=== PATIENT | male | born 1975 | race Two or more races ===

== ENCOUNTER 2022-12-08 12:44 | Inpatient (IN) | payer OTHER ==
[2022-12-08] MEDS ORDERED: hydrOXYzine PAMOATE 25 MG CAPSULE (FP) PO PRN (16:35)
[2022-12-08] MEDS ORDERED: NICOTINE POLACRILEX 2 MG GUM BUC PRN (16:35)
[2022-12-08] MEDS ORDERED: MAG HYDROX/AL HYDROX/SIMETH 30 ML UNIT-DOSE CUP PO PRN (16:35)
[2022-12-08] MEDS ORDERED: MAGNESIUM HYDROX 2400MG/30ML ORAL SUSPENSION 30 ML CUP PO PRN (16:35)
[2022-12-08] MEDS ORDERED: IBUPROFEN 600 MG TABLET (FP) PO PRN (16:35)
[2022-12-08] MEDS ORDERED: ACETAMINOPHEN 325 MG TABLET (FP) PO PRN (16:35)
[2022-12-08] MEDS ORDERED: NALOXONE HCL (KLOXXADO) 8 MG SPRAY NS PRN (16:35)
[2022-12-08] MEDS ORDERED: IBUPROFEN 400 MG TABLET (FP) PO PRN (16:35)
[2022-12-08] MEDS ORDERED: guaiFENesin 600 MG TABLET.ER (FP) PO PRN (16:35)
[2022-12-08] MEDS ORDERED: POLYETHYLENE GLYCOL (HEALTHYLAX) 3350 17 GM PACKET PO PRN (16:35)
[2022-12-08] MEDS ORDERED: COLLOIDAL OATMEAL 1 BAR EACH TP PRN (16:35)
[2022-12-08] MEDS ORDERED: BENZONATATE 200 MG CAPSULE PO PRN (16:35)
[2022-12-08] MEDS ORDERED: BENZOCAINE/MENTHOL (CHLORASEPTIC ) LOZENGE MM PRN (16:35)
[2022-12-08] MEDS ORDERED: NALOXONE HCL 0.4 MG/ML VIAL IM PRN (16:35)
[2022-12-08] MEDS ORDERED: P-EPHED 60MG/TRIPROLIDI 2.5MG TABLET PO PRN (16:35)
[2022-12-08] MEDS ORDERED: LOPERAMIDE HCL 2 MG CAPSULE PO PRN (16:35)
[2022-12-08] MEDS ORDERED: MELATONIN 5 MG TABLETS PO SCH (22:00)
[2022-12-08] MEDS ORDERED: THIAMINE HCL 100 MG TABLET (FP) PO SCH (22:00)
[2022-12-09 07:02] VITALS: TEMP 97.7
[2022-12-09] MEDS ORDERED: methaDONE HCL 10 MG TABLET PO ONE (09:03)
[2022-12-09 09:04] VITALS: RESP 16
[2022-12-09] MEDS ORDERED: BISMUTH SUBSALICYLATE 524 MG/30 ML PO PRN (09:11)
[2022-12-09] MEDS ORDERED: BACLOFEN 10 MG TABLET (FP) PO PRN (09:11)
[2022-12-09] MEDS ORDERED: ONDANSETRON *ODT* 4 MG TABLET SL PRN (09:11)
[2022-12-09] MEDS ORDERED: DICYCLOMINE HCL 10 MG CAPSULE PO PRN (09:11)
[2022-12-09] MEDS ORDERED: cloNIDine HCL 0.1 MG TABLET PO PRN (09:13)
[2022-12-09] MEDS ORDERED: NICOTINE POLACRILEX 4 MG GUM BUC PRN (09:13)
[2022-12-09] MEDS ORDERED: methaDONE 40 MG, methaDONE 10 MG PO ONE (09:30)
[2022-12-09] MEDS ORDERED: PRENATAL VITAMINS W/ FOLIC ACID TABLET (FP) PO SCH (10:00)
[2022-12-09 10:36] LABS: HEMOGLOBIN 14.3 GM/dL (11.7-16.9); MCH 27.8 pg (25.7-33.7); MCHC 32.5 g/dl (32.0-35.9); MEAN CELL VOLUME 85.5 fl (80-96); MEAN PLT VOLUME 8.5 fl (7.5-11.1); PLATELET COUNT 270 10^3/uL (134-434); RBC 5.14 M/mm3 (4.00-5.60); RDW 14.1 % (11.9-15.9); WHITE BLOOD COUNT 5.1 K/mm3 (4.0-10.0)
[2022-12-09 10:43] LABS: URINE APPEARANCE CLEAR; URINE BILIRUBIN NEGATIVE (NEGATIVE); URINE COLOR YELLOW; URINE GLUCOSE (UA) NEGATIVE (NEGATIVE); URINE KETONE NEGATIVE (NEGATIVE); URINE LEUK ESTERASE NEGATIVE (NEGATIVE); URINE NITRITE NEGATIVE (NEGATIVE); URINE PROTEIN NEGATIVE (NEGATIVE); URINE UROBILINOGEN 0.2 mg/dL (0.2-1.0)
[2022-12-09 11:07] LABS: CALCIUM 9.1 mg/dL (8.5-10.1)
[2022-12-09 11:08] LABS: ALBUMIN 3.9 g/dl (3.4-5.0); BLOOD UREA NITROGEN 10.5 mg/dL (7-18)
[2022-12-09 11:11] LABS: CREATININE 0.9 mg/dL (0.55-1.3)
[2022-12-09 11:12] LABS: BILIRUBIN,TOTAL 0.8 mg/dL (0.2-1); TOT PROT 7.4 g/dl (6.4-8.2)
[2022-12-09] MEDS ORDERED: TUBERCULIN PPD 5 TU/0.1ML VIAL ID ONE (11:17)
[2022-12-09] MEDS ORDERED: TUBERCULIN PPD 5 TU/0.1ML SYRINGE (IN PATIENT USE ONLY) ID ONE (12:00)
[2022-12-09 12:45] LABS: SYPHILIS W/ RPR CONF NON-REACTIVE (NONREACTIVE)
[2022-12-09 16:47] VITALS: BP 128/86; PULSE 100
[2022-12-09] MEDS ORDERED: SUVOREXANT 10 MG TABLET PO PRN (22:00)
[2022-12-10] MEDS ORDERED: methaDONE 40 MG, methaDONE 20 MG PO ONE (06:00)
[2022-12-10] MEDS ORDERED: methaDONE HCL 10 MG TABLET PO ONE (06:00)
[2022-12-11] MEDS ORDERED: methaDONE 40 MG, methaDONE 30 MG PO ONE (06:00)
[2022-12-11] MEDS ORDERED: methaDONE HCL 10 MG TABLET PO SCH (06:00)
[2022-12-12] MEDS ORDERED: methaDONE HCL 40 MG DISPERSABLE TABLET PO SCH (06:00)
== END 2022-12-09 16:48 | disposition left against medical advice (07) | DRG 770 ==
LOC: YASAS 12:44 → Y3W 22:00
PROVIDERS: ADMIT Allergy & Immunology; ATTEND Psychiatry & Neurology Pain Medicine
PROC: HZ42ZZZ Group Counseling for Substance Abuse Treatment, Cognitive-Behavioral (ICD-10-PCS; principal; 2022-12-08)
DX: F14.20 Cocaine dependence, uncomplicated (principal); F11.20 Opioid dependence, uncomplicated; F10.20 Alcohol dependence, uncomplicated; F17.210 Nicotine dependence, cigarettes, uncomplicated; F31.9 Bipolar disorder, unspecified; F19.24 Other psychoactive substance dependence with psychoactive substance-induced mood disorder
CPT/HCPCS: 36415; 80053; 81003; 85027; 86780; 86803; 87635

== ENCOUNTER 2023-09-19 15:04 | Inpatient (IN) | payer OTHER ==
[2023-09-19 17:41] VITALS: BMI 25.9
[2023-09-19] MEDS ORDERED: NICOTINE POLACRILEX 2 MG GUM BUC PRN (17:58)
[2023-09-19] MEDS ORDERED: BENZONATATE 200 MG CAPSULE PO PRN (17:58)
[2023-09-19] MEDS ORDERED: BENZOCAINE/MENTHOL (CHLORASEPTIC ) LOZENGE MM PRN (17:58)
[2023-09-19] MEDS ORDERED: BISMUTH SUBSALICYLATE 524 MG/30 ML PO PRN (17:58)
[2023-09-19] MEDS ORDERED: MAGNESIUM HYDROX 2400MG/30ML ORAL SUSPENSION 30 ML CUP PO PRN (17:58)
[2023-09-19] MEDS ORDERED: DICYCLOMINE HCL 10 MG CAPSULE PO PRN (17:58)
[2023-09-19] MEDS ORDERED: guaiFENesin 600 MG TABLET.ER (FP) PO PRN (17:58)
[2023-09-19] MEDS ORDERED: ONDANSETRON *ODT* 4 MG TABLET SL PRN (17:58)
[2023-09-19] MEDS ORDERED: LOPERAMIDE HCL 2 MG CAPSULE PO PRN (17:58)
[2023-09-19] MEDS ORDERED: NALOXONE HCL 0.4 MG/ML VIAL IM PRN (17:58)
[2023-09-19] MEDS ORDERED: NALOXONE (NARCAN) HCL 4 MG/0.1 ML SPRAY NS PRN (17:58)
[2023-09-19] MEDS ORDERED: IBUPROFEN 400 MG TABLET (FP) PO PRN (17:58)
[2023-09-19] MEDS ORDERED: POLYETHYLENE GLYCOL (HEALTHYLAX) 3350 17 GM PACKET PO PRN (17:58)
[2023-09-19] MEDS ORDERED: ACETAMINOPHEN 325 MG TABLET (FP) PO PRN (17:58)
[2023-09-19] MEDS ORDERED: NICOTINE POLACRILEX 2 MG LOZENGE BC PRN (17:58)
[2023-09-19] MEDS: hydrOXYzine PAMOATE 25 MG CAPSULE (FP) PO PRN (21:08)
[2023-09-19] MEDS: METHOCARBAMOL 500 MG TABLET PO PRN (21:08)
[2023-09-19] MEDS: THIAMINE 100 MG TABLET PO SCH (21:08)
[2023-09-19] MEDS: MELATONIN 5 MG TABLETS PO SCH (21:09)
[2023-09-19] MEDS ORDERED: MELATONIN 5 MG TABLETS PO SCH (22:00)
[2023-09-20] MEDS ORDERED: methaDONE HCL 10 MG TABLET PO ONE (08:35)
[2023-09-20] MEDS: methaDONE 80 MG, methaDONE 10 MG PO ONE (08:48)
[2023-09-20] MEDS ORDERED: chlordiazePOXIDE HCL 25 MG CAPSULE PO PRN (09:11)
[2023-09-20] MEDS: chlordiazePOXIDE HCL 25 MG CAPSULE PO SCH (10:03)
[2023-09-20] MEDS: PRENATAL VITAMINS W/ FOLIC ACID TABLET (FP) PO SCH (10:05)
[2023-09-20] MEDS: OLANZapine 10 MG TABLET PO SCH (10:42)
[2023-09-20 11:53] LABS: POTASSIUM 4.1 mmol/L (3.5-5.1)
[2023-09-20 11:57] LABS: ALBUMIN 3.2 g/dl (3.4-5.0); BLOOD UREA NITROGEN 10.2 mg/dL (7-18); CALCIUM 8.5 mg/dL (8.5-10.1)
[2023-09-20 12:00] LABS: CREATININE 0.8 mg/dL (0.55-1.3)
[2023-09-20 12:02] LABS: BILIRUBIN,TOTAL 0.4 mg/dL (0.2-1); TOT PROT 6.4 g/dl (6.4-8.2)
[2023-09-20 12:12] LABS: HEMATOCRIT 40.5 % (35.4-49); HEMOGLOBIN 13.1 GM/dL (11.7-16.9); MCHC 32.4 g/dl (32.0-35.9); MEAN CELL VOLUME 83.3 fl (80-96); MEAN PLT VOLUME 8.4 fl (7.5-11.1); PLATELET COUNT 221 10^3/uL (134-434); RBC 4.87 M/mm3 (4.00-5.60); RDW 13.8 % (11.9-15.9); WHITE BLOOD COUNT 4.9 K/mm3 (4.0-10.0)
[2023-09-20] MEDS: GABAPENTIN 300 MG CAPSULE PO SCH (13:44)
[2023-09-21] MEDS: methaDONE 80 MG, methaDONE 10 MG PO SCH (05:32)
[2023-09-21] MEDS ORDERED: methaDONE HCL 10 MG TABLET PO SCH (06:00)
[2023-09-21] MEDS: diazePAM 5 MG TABLET PO SCH (17:02)
[2023-09-21] MEDS: diazePAM 5 MG TABLET PO PRN (19:23)
[2023-09-22] MEDS: IBUPROFEN 600 MG TABLET (FP) PO PRN (01:06)
[2023-09-22] MEDS ORDERED: chlordiazePOXIDE HCL 25 MG CAPSULE PO SCH (05:00)
[2023-09-23] MEDS ORDERED: chlordiazePOXIDE HCL 10 MG CAPSULE PO PRN
[2023-09-23] MEDS ORDERED: chlordiazePOXIDE HCL 10 MG CAPSULE PO SCH (05:00)
[2023-09-23] MEDS: diazePAM 5 MG TABLET PO SCH (05:16)
[2023-09-23] MEDS: MAG HYDROX/AL HYDROX/SIMETH 30 ML UNIT-DOSE CUP PO PRN (16:32)
[2023-09-23 17:37] VITALS: BP 119/80; PULSE 90; RESP 16; TEMP 98.4
[2023-09-24] MEDS ORDERED: chlordiazePOXIDE HCL 10 MG CAPSULE PO SCH (05:00)
[2023-09-24] MEDS ORDERED: diazePAM 5 MG TABLET PO SCH (06:00)
[2023-09-25] MEDS ORDERED: chlordiazePOXIDE HCL 10 MG CAPSULE PO ONE (05:00)
[2023-09-25] MEDS ORDERED: diazePAM 5 MG TABLET PO ONE (06:00)
== END 2023-09-23 17:02 | disposition home or self-care (01) | DRG 773 ==
LOC: YASAS 15:04 → Y6N 19:24
PROVIDERS: ADMIT Allergy & Immunology; ATTEND Family Medicine Addiction Medicine
PROC: HZ2ZZZZ Detoxification Services for Substance Abuse Treatment (ICD-10-PCS; principal; 2023-09-19)
DX: F10.230 Alcohol dependence with withdrawal, uncomplicated (principal); F11.20 Opioid dependence, uncomplicated; F14.20 Cocaine dependence, uncomplicated; F17.210 Nicotine dependence, cigarettes, uncomplicated; F31.9 Bipolar disorder, unspecified; F25.9 Schizoaffective disorder, unspecified; F19.282 Other psychoactive substance dependence with psychoactive substance-induced sleep disorder; F19.24 Other psychoactive substance dependence with psychoactive substance-induced mood disorder
CPT/HCPCS: 36415; 80053; 80305; 85027; 86780; 93005; 93010

== ENCOUNTER 2024-05-25 12:21 | Inpatient (IN) | payer OTHER ==
[2024-05-25 13:01] VITALS: BMI 26.5
[2024-05-25] MEDS ORDERED: IBUPROFEN 400 MG TABLET (FP) PO PRN (15:28)
[2024-05-25] MEDS ORDERED: guaiFENesin 600 MG TABLET.ER (FP) PO PRN (15:28)
[2024-05-25] MEDS ORDERED: MAG HYDROX/AL HYDROX/SIMETH 30 ML UNIT-DOSE CUP PO PRN (15:28)
[2024-05-25] MEDS ORDERED: BISMUTH SUBSALICYLATE 262 MG/15 ML BTL PO PRN (15:28)
[2024-05-25] MEDS ORDERED: NALOXONE (NARCAN) HCL 4 MG/0.1 ML SPRAY NS PRN (15:28)
[2024-05-25] MEDS ORDERED: MAGNESIUM HYDROX 2400MG/30ML ORAL SUSPENSION 30 ML CUP PO PRN (15:28)
[2024-05-25] MEDS ORDERED: POLYETHYLENE GLYCOL (HEALTHYLAX) 3350 17 GM PACKET PO PRN (15:28)
[2024-05-25] MEDS ORDERED: LOPERAMIDE HCL 2 MG CAPSULE PO PRN (15:28)
[2024-05-25] MEDS ORDERED: BENZONATATE 200 MG CAPSULE PO PRN (15:28)
[2024-05-25] MEDS ORDERED: ONDANSETRON *ODT* 4 MG TABLET SL PRN (15:28)
[2024-05-25] MEDS ORDERED: DICYCLOMINE HCL 10 MG CAPSULE PO PRN (15:28)
[2024-05-25] MEDS ORDERED: IBUPROFEN 600 MG TABLET (FP) PO PRN (15:28)
[2024-05-25] MEDS ORDERED: ACETAMINOPHEN 325 MG TABLET (FP) PO PRN (15:28)
[2024-05-25] MEDS ORDERED: BENZOCAINE/MENTHOL (CHLORASEPTIC ) LOZENGE MM PRN (15:28)
[2024-05-25] MEDS: PRENATAL VITAMINS W/ FOLIC ACID TABLET (FP) PO SCH (17:01)
[2024-05-25] MEDS: MELATONIN 5 MG TABLETS PO SCH (22:48)
[2024-05-25] MEDS: THIAMINE 100 MG TABLET PO SCH (22:48)
[2024-05-26] MEDS: hydrOXYzine PAMOATE 25 MG CAPSULE (FP) PO PRN (01:40)
[2024-05-26] MEDS: METHOCARBAMOL 500 MG TABLET PO PRN (01:40)
[2024-05-26 09:31] LABS: CHLORIDE 104 mmol/L (98-107); POTASSIUM 4.6 mmol/L (3.5-5.1); SODIUM 138 mmol/L (136-145)
[2024-05-26 09:34] LABS: HEMATOCRIT 39.3 % (40.1-51.0); HEMOGLOBIN 12.4 g/dL (13.7-17.5); MCHC 31.6 g/dl (32.3-36.5); MEAN CELL VOLUME 85.8 fl (79.0-92.2); MEAN PLT VOLUME 10.4 fl (9.4-12.4); PLATELET COUNT # 283 x10^3/uL (163-337); RDW 13.8 % (12.1-15.9)
[2024-05-26 10:13] LABS: ALBUMIN 3.1 g/dl (3.4-5.0); BLOOD UREA NITROGEN 11.4 mg/dL (7-18); CALCIUM 8.5 mg/dL (8.5-10.1); GLUCOSE,RANDOM 108 mg/dL (74-106)
[2024-05-26 10:14] LABS: ANION GAP 5 mmol/L (4-13); CO2 28 mmol/L (21-32)
[2024-05-26 10:16] LABS: CREATININE 0.8 mg/dL (0.55-1.3); SGOT/AST 19 U/L (15-37)
[2024-05-26 10:18] LABS: BILIRUBIN,TOTAL 0.5 mg/dL (0.2-1); TOT PROT 6.3 g/dl (6.4-8.2)
[2024-05-26 10:19] LABS: ALK PHOS 109 U/L (45-117)
[2024-05-26] MEDS: methaDONE 40 MG, methaDONE 30 MG PO SCH (10:30)
[2024-05-26 10:32] LABS: SGPT/ALT 23 U/L (13-61)
[2024-05-26] MEDS: methaDONE HCL 40 MG DISPERSABLE TABLET PO SCH (10:39)
[2024-05-26] MEDS: GABAPENTIN 300 MG CAPSULE PO SCH (13:23)
[2024-05-26] MEDS: MIRTAZAPINE 15 MG TABLET (FP) PO SCH (22:06)
[2024-05-26] MEDS: OLANZapine 10 MG TABLET PO SCH (22:06)
[2024-05-27] MEDS ORDERED: chlordiazePOXIDE HCL 25 MG CAPSULE PO PRN (08:56)
[2024-05-27] MEDS ORDERED: diazePAM 5 MG TABLET PO PRN (10:11)
[2024-05-27] MEDS ORDERED: chlordiazePOXIDE HCL 25 MG CAPSULE PO SCH (11:00)
[2024-05-27] MEDS: diazePAM 5 MG TABLET PO SCH (13:05)
[2024-05-27] MEDS: DIVALPROEX SODIUM 250 MG TABLET E.C. PO SCH (21:19)
[2024-05-27] MEDS: levETIRAcetam 500 MG TABLET (FP) PO SCH (21:19)
[2024-05-28] MEDS ORDERED: chlordiazePOXIDE HCL 10 MG CAPSULE PO SCH (05:00)
[2024-05-28] MEDS: diazePAM 5 MG TABLET PO SCH (05:53)
[2024-05-28] MEDS: ACAMPROSATE CALCIUM 333 MG TABLET.DR PO SCH (13:14)
[2024-05-29] MEDS ORDERED: chlordiazePOXIDE HCL 10 MG CAPSULE PO SCH (05:00)
[2024-05-29] MEDS: diazePAM 5 MG TABLET PO ONE (06:03)
[2024-05-29 08:47] VITALS: BP 121/81; PULSE 95; RESP 17; TEMP 97.6
[2024-05-30] MEDS ORDERED: chlordiazePOXIDE HCL 10 MG CAPSULE PO ONE (05:00)
== END 2024-05-29 12:06 | disposition home or self-care (01) | DRG 773 ==
LOC: YASAS 12:21 → Y6N 16:34
PROVIDERS: ADMIT Allergy & Immunology; ATTEND Allergy & Immunology
PROC: HZ2ZZZZ Detoxification Services for Substance Abuse Treatment (ICD-10-PCS; principal; 2024-05-25)
DX: F10.230 Alcohol dependence with withdrawal, uncomplicated (principal); F11.20 Opioid dependence, uncomplicated; F14.20 Cocaine dependence, uncomplicated; F12.20 Cannabis dependence, uncomplicated; F17.210 Nicotine dependence, cigarettes, uncomplicated; F31.9 Bipolar disorder, unspecified; F25.0 Schizoaffective disorder, bipolar type; F19.282 Other psychoactive substance dependence with psychoactive substance-induced sleep disorder; E78.5 Hyperlipidemia, unspecified
CPT/HCPCS: 36415; 80053; 80305; 80307; 85027; 86780; 93005; 93010

== ENCOUNTER 2024-07-05 14:01 | Inpatient (IN) | payer OTHER ==
[2024-07-05 14:20] VITALS: BMI 27.6
[2024-07-05] MEDS ORDERED: IBUPROFEN 600 MG TABLET (FP) PO PRN (14:31)
[2024-07-05] MEDS ORDERED: NALOXONE (NARCAN) HCL 4 MG/0.1 ML SPRAY NS PRN (14:31)
[2024-07-05] MEDS ORDERED: BENZONATATE 200 MG CAPSULE PO PRN (14:31)
[2024-07-05] MEDS ORDERED: POLYETHYLENE GLYCOL (HEALTHYLAX) 3350 17 GM PACKET PO PRN (14:31)
[2024-07-05] MEDS ORDERED: ACETAMINOPHEN 325 MG TABLET (FP) PO PRN (14:31)
[2024-07-05] MEDS ORDERED: BISMUTH SUBSALICYLATE 262 MG/15 ML BTL PO PRN (14:31)
[2024-07-05] MEDS ORDERED: DICYCLOMINE HCL 10 MG CAPSULE PO PRN (14:31)
[2024-07-05] MEDS ORDERED: ONDANSETRON *ODT* 4 MG TABLET SL PRN (14:31)
[2024-07-05] MEDS ORDERED: BENZOCAINE/MENTHOL (CHLORASEPTIC ) LOZENGE MM PRN (14:31)
[2024-07-05] MEDS ORDERED: MAG HYDROX/AL HYDROX/SIMETH 30 ML UNIT-DOSE CUP PO PRN (14:31)
[2024-07-05] MEDS ORDERED: LOPERAMIDE HCL 2 MG CAPSULE PO PRN (14:31)
[2024-07-05] MEDS ORDERED: IBUPROFEN 400 MG TABLET (FP) PO PRN (14:31)
[2024-07-05] MEDS ORDERED: guaiFENesin 600 MG TABLET.ER (FP) PO PRN (14:31)
[2024-07-05] MEDS ORDERED: MAGNESIUM HYDROX 2400MG/30ML ORAL SUSPENSION 30 ML CUP PO PRN (14:31)
[2024-07-05] MEDS ORDERED: diazePAM 5 MG TABLET ONE (14:58)
[2024-07-05] MEDS: PRENATAL VITAMINS W/ FOLIC ACID TABLET (FP) PO SCH (14:59)
[2024-07-05] MEDS ORDERED: PRENATAL VITAMINS W/ FOLIC ACID TABLET (FP) PO ONE (14:59)
[2024-07-05] MEDS: diazePAM 5 MG TABLET PO ONE (15:00)
[2024-07-05] MEDS: diazePAM 5 MG TABLET PO SCH (17:24)
[2024-07-05] MEDS: diazePAM 5 MG TABLET PO PRN (19:44)
[2024-07-05] MEDS: MELATONIN 5 MG TABLETS PO SCH (21:59)
[2024-07-05] MEDS: THIAMINE 100 MG TABLET PO SCH (22:00)
[2024-07-05] MEDS: ACAMPROSATE CALCIUM 333 MG TABLET.DR PO SCH (22:02)
[2024-07-06 10:00] LABS: HEMATOCRIT 42.7 % (40.1-51.0); MCHC 30.4 g/dl (32.3-36.5); MEAN CELL VOLUME 86.4 fl (79.0-92.2); MEAN PLT VOLUME 10.4 fl (9.4-12.4); PLATELET COUNT 257 x10^3/uL (163-337); RDW 13.3 % (12.2-16.1)
[2024-07-06] MEDS: METHOCARBAMOL 500 MG TABLET PO PRN (10:09)
[2024-07-06] MEDS ORDERED: methaDONE 40 MG, methaDONE 30 MG PO ONE (10:21)
[2024-07-06 10:40] LABS: CHLORIDE 101 mmol/L (98-107); POTASSIUM 3.8 mmol/L (3.5-5.1); SODIUM 136 mmol/L (136-145)
[2024-07-06] MEDS: methaDONE 40 MG, methaDONE 30 MG PO ONE (10:45)
[2024-07-06 10:58] LABS: CALCIUM 9.3 mg/dL (8.5-10.1)
[2024-07-06 10:59] LABS: ALBUMIN 3.1 g/dl (3.4-5.0); ANION GAP 10 mmol/L (4-13); BLOOD UREA NITROGEN 8.1 mg/dL (7-18); CO2 26 mmol/L (21-32); GLUCOSE,RANDOM 164 mg/dL (74-106)
[2024-07-06 11:02] LABS: SGOT/AST 21 U/L (15-37)
[2024-07-06 11:03] LABS: BILIRUBIN,TOTAL 0.3 mg/dL (0.2-1); TOT PROT 6.4 g/dl (6.4-8.2)
[2024-07-06 11:05] LABS: ALK PHOS 107 U/L (45-117)
[2024-07-06 11:28] LABS: SGPT/ALT 22 U/L (13-61)
[2024-07-06] MEDS: GABAPENTIN 300 MG CAPSULE PO SCH (13:46)
[2024-07-06] MEDS: OLANZapine 10 MG TABLET PO SCH (22:10)
[2024-07-06] MEDS: hydrOXYzine PAMOATE 25 MG CAPSULE (FP) PO PRN (22:44)
[2024-07-07] MEDS: methaDONE 40 MG, methaDONE 30 MG PO SCH (05:31)
[2024-07-07] MEDS: diazePAM 5 MG TABLET PO SCH (05:33)
[2024-07-07] MEDS ORDERED: methaDONE 40 MG, methaDONE 30 MG PO SCH ×2 (06:00→10:00)
[2024-07-08] MEDS: diazePAM 5 MG TABLET PO SCH (05:35)
[2024-07-09] MEDS: diazePAM 5 MG TABLET PO ONE (05:57)
[2024-07-09 06:42] VITALS: RESP 18
[2024-07-09 08:51] VITALS: BP 121/73; PULSE 90; TEMP 98.4
== END 2024-07-09 11:15 | disposition home or self-care (01) | DRG 773 ==
LOC: YASAS 14:01 → Y6N 14:51
PROVIDERS: ADMIT Allergy & Immunology; ATTEND Allergy & Immunology
PROC: HZ2ZZZZ Detoxification Services for Substance Abuse Treatment (ICD-10-PCS; principal; 2024-07-05)
DX: F10.230 Alcohol dependence with withdrawal, uncomplicated (principal); F11.20 Opioid dependence, uncomplicated; F14.20 Cocaine dependence, uncomplicated; F12.20 Cannabis dependence, uncomplicated; F17.210 Nicotine dependence, cigarettes, uncomplicated; F19.282 Other psychoactive substance dependence with psychoactive substance-induced sleep disorder; F31.9 Bipolar disorder, unspecified; E78.5 Hyperlipidemia, unspecified
CPT/HCPCS: 36415; 80053; 80305; 80307; 82962; 85027; 86780; 93005; 93010

== ENCOUNTER 2024-08-24 16:15 | Inpatient (IN) | payer OTHER ==
[2024-08-24 17:09] VITALS: BMI 28.7
[2024-08-24] MEDS ORDERED: NALOXONE (NARCAN) HCL 4 MG/0.1 ML SPRAY NS PRN (17:54)
[2024-08-24] MEDS ORDERED: guaiFENesin 600 MG TABLET.ER (FP) PO PRN (17:54)
[2024-08-24] MEDS ORDERED: BENZONATATE 200 MG CAPSULE PO PRN (17:54)
[2024-08-24] MEDS ORDERED: ONDANSETRON *ODT* 4 MG TABLET SL PRN (17:54)
[2024-08-24] MEDS ORDERED: BISMUTH SUBSALICYLATE 524 MG/30 ML PO PRN (17:54)
[2024-08-24] MEDS ORDERED: MAG HYDROX/AL HYDROX/SIMETH 30 ML UNIT-DOSE CUP PO PRN (17:54)
[2024-08-24] MEDS ORDERED: POLYETHYLENE GLYCOL (HEALTHYLAX) 3350 17 GM PACKET PO PRN (17:54)
[2024-08-24] MEDS ORDERED: LOPERAMIDE HCL 2 MG CAPSULE PO PRN (17:54)
[2024-08-24] MEDS ORDERED: IBUPROFEN 400 MG TABLET (FP) PO PRN (17:54)
[2024-08-24] MEDS ORDERED: MAGNESIUM HYDROX 2400MG/30ML ORAL SUSPENSION 30 ML CUP PO PRN (17:54)
[2024-08-24] MEDS ORDERED: BENZOCAINE/MENTHOL (CHLORASEPTIC ) LOZENGE MM PRN (17:54)
[2024-08-24] MEDS ORDERED: DICYCLOMINE HCL 10 MG CAPSULE PO PRN (17:54)
[2024-08-24] MEDS: MELATONIN 5 MG TABLETS PO SCH (23:12)
[2024-08-24] MEDS: THIAMINE 100 MG TABLET PO SCH (23:12)
[2024-08-24] MEDS: hydrOXYzine PAMOATE 25 MG CAPSULE (FP) PO PRN (23:13)
[2024-08-24] MEDS: METHOCARBAMOL 500 MG TABLET PO PRN (23:13)
[2024-08-25 09:46] LABS: CHLORIDE 105 mmol/L (98-107); POTASSIUM 4.2 mmol/L (3.5-5.1); SODIUM 139 mmol/L (136-145)
[2024-08-25 09:53] LABS: HEMATOCRIT 39.7 % (40.1-51.0); HEMOGLOBIN 12.2 g/dL (13.7-17.5); MCHC 30.7 g/dl (32.3-36.5); MEAN CELL VOLUME 84.5 fl (79.0-92.2); MEAN PLT VOLUME 9.9 fl (9.4-12.4); PLATELET COUNT 308 x10^3/uL (163-337); RDW 14.5 % (12.2-16.1)
[2024-08-25 09:54] LABS: ALBUMIN 3.1 g/dl (3.4-5.0); ANION GAP 5 mmol/L (4-13); CALCIUM 9.3 mg/dL (8.5-10.1); CO2 29 mmol/L (21-32); GLUCOSE,RANDOM 100 mg/dL (74-106)
[2024-08-25 09:55] LABS: SGPT/ALT 23 U/L (13-61)
[2024-08-25 09:56] LABS: SGOT/AST 25 U/L (15-37)
[2024-08-25 09:57] LABS: BILIRUBIN,TOTAL 0.4 mg/dL (0.2-1); CREATININE 0.9 mg/dL (0.55-1.3); TOT PROT 6.5 g/dl (6.4-8.2)
[2024-08-25 09:58] LABS: ALK PHOS 113 U/L (45-117)
[2024-08-25] MEDS: PRENATAL VITAMINS W/ FOLIC ACID TABLET (FP) PO SCH (10:20)
[2024-08-25] MEDS ORDERED: chlordiazePOXIDE HCL 10 MG CAPSULE PO PRN (10:41)
[2024-08-25] MEDS: methaDONE HCL 40 MG DISPERSABLE TABLET PO SCH (10:56)
[2024-08-25] MEDS ORDERED: chlordiazePOXIDE HCL 25 MG CAPSULE PO SCH (11:00)
[2024-08-25] MEDS: chlordiazePOXIDE HCL 25 MG CAPSULE PO SCH (11:08)
[2024-08-25] MEDS: OLANZapine 10 MG TABLET PO SCH (22:16)
[2024-08-25] MEDS: GABAPENTIN 300 MG CAPSULE PO SCH (22:17)
[2024-08-26] MEDS: IBUPROFEN 600 MG TABLET (FP) PO PRN (02:21)
[2024-08-26] MEDS: chlordiazePOXIDE HCL 25 MG CAPSULE PO SCH (05:00)
[2024-08-27] MEDS: chlordiazePOXIDE HCL 10 MG CAPSULE PO SCH (05:59)
[2024-08-27] MEDS: PENICILLIN V POTASSIUM 500 MG TABLET PO SCH (10:39)
[2024-08-28] MEDS: chlordiazePOXIDE HCL 10 MG CAPSULE PO SCH (05:05)
[2024-08-28] MEDS: GABAPENTIN 300 MG CAPSULE PO SCH (17:04)
[2024-08-28] MEDS: ACETAMINOPHEN 325 MG TABLET (FP) PO PRN (19:20)
[2024-08-29] MEDS: chlordiazePOXIDE HCL 10 MG CAPSULE PO ONE (05:15)
[2024-08-30 09:29] VITALS: BP 130/77; PULSE 85; RESP 16; TEMP 97.5
== END 2024-08-30 10:19 | disposition home or self-care (01) | DRG 773 ==
LOC: YASAS 16:15 → Y6N 21:50
PROVIDERS: ADMIT Allergy & Immunology; ATTEND Allergy & Immunology
PROC: HZ2ZZZZ Detoxification Services for Substance Abuse Treatment (ICD-10-PCS; principal; 2024-08-24)
DX: F10.230 Alcohol dependence with withdrawal, uncomplicated (principal); F11.20 Opioid dependence, uncomplicated; F14.20 Cocaine dependence, uncomplicated; F12.20 Cannabis dependence, uncomplicated; F17.210 Nicotine dependence, cigarettes, uncomplicated; F31.70 Bipolar disorder, currently in remission, most recent episode unspecified; F19.282 Other psychoactive substance dependence with psychoactive substance-induced sleep disorder; E78.5 Hyperlipidemia, unspecified; Z62.810 Personal history of physical and sexual abuse in childhood
CPT/HCPCS: 36415; 70110-TC-FY; 80053; 80305; 80307; 85027; 86780; 93005; 93010